=== PATIENT | female | born 1990 | race American Indian/Alaskan Native ===

== ENCOUNTER 2016-10-04 14:26 | Emergency (ER) | payer MEDICAID ==
[2016-10-04] MEDS ORDERED: Ondansetron 4 MG/2 ML SDV IV ONE (15:03)
[2016-10-04] MEDS ORDERED: Sodium Chloride 0.9% 1,000 ML IV ONE (15:03)
--- NOTE | 2016-10-04 15:11 | EDM.PDOC ---
ED HPI GENERAL MEDICAL PROBLEM - General Chief Complaint: Abdominal Pain Stated Complaint: SHARP PAINS, IN ABDOMEN Time Seen by Provider: 10/04/16 14:55 Source of Information: Reports: Patient History Limitations: Reports: No Limitations - History of Present Illness INITIAL COMMENTS - FREE TEXT/NARRATIVE: This 26 yo female patient reports to the ED with a 1 hour history of lower abdominal pain. The patient reports she was not doing anything specific when the pain started. The patient reports she is on the Mirena and has been for the past 6 months. The patient reports she has had 4 children (all vaginal births), but has had no abdominal surgeries. The patient reports no dysuria or changes in bowel movements. Onset: Today Onset Date: 10/04/16 Onset Time: 14:00 Duration: Constant, Getting Worse Location: Reports: Abdomen (lower abdomen) Quality: Reports: Ache, Pressure, Sharp Severity: Severe Improves with: Reports: None Worsens with: Reports: None Context: Reports: Other Associated Symptoms: Reports: No Other Symptoms Lower Abdomen Pain Score (Numeric/FACES): 10 - Related Data Allergies Allergy/AdvReac Type Severity Reaction Status Date / Time morphine Allergy Other Verified 02/24/16 10:30 Home Meds: Home Meds . 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: Reports: Social & Family History - Family History Family Medical History: Noncontributory - Tobacco Use Smoking Status *Q: Current Every Day Smoker Years of Tobacco use: 7 Packs/Tins Daily: 0.5 Used Tobacco, but Quit: No Month Tobacco Last Used: 07/21/15 Second Hand Smoke Exposure: Yes - Caffeine Use Caffeine Use: Reports: Coffee, Energy Drinks, Soda - Alcohol Use Days Per Week of Alcohol Use: 1 Number of Drinks Per Day: 6 Total Drinks Per Week: 6 - Recreational Drug Use Recreational Drug Use: No - Living Situation & Occupation Living situation: Reports: with Family ED ROS GENERAL - Review of Systems Review Of Systems: ROS reveals no pertinent complaints other than HPI. ED EXAM, GI/ABD - Physical Exam Exam: See Below Exam Limited By: No Limitations General Appearance: Alert, WD/WN, Moderate Distress, Thin Eyes: Bilateral: Normal Appearance, EOMI Ears: Normal External Exam, Normal Canal, Hearing Grossly Normal, Normal TMs Nose: Normal Inspection, Normal Mucosa, No Blood Throat/Mouth: Normal Inspection, Normal Lips, Normal Teeth, Normal Gums, Normal Oropharynx, Normal Voice, No Airway Compromise Head: Atraumatic, Normocephalic Neck: Normal Inspection, Supple, Non-Tender, Full Range of Motion Respiratory/Chest: No Respiratory Distress, Lungs Clear, Normal Breath Sounds, No Accessory Muscle Use, Chest Non-Tender Cardiovascular: Normal Peripheral Pulses, Regular Rate, Rhythm, No Edema, No Gallop, No JVD, No Murmur, No Rub GI/Abdominal Exam: Normal Bowel Sounds, Soft, No Organomegaly, No Distention, No Abnormal Bruit, Pelvis Stable, Guarding (lower abdomen), Tender (lower abdomen) Rectal (Female) Exam: Deferred Back Exam: Normal Inspection, Full Range of Motion, NT Extremities: Normal Inspection, Normal Range of Motion, Non-Tender, Normal Capillary Refill, No Pedal Edema Neurological: Alert, Oriented, CN II-XII Intact, Normal Cognition, Normal Gait, Normal Reflexes, No Motor/Sensory Deficits Psychiatric: Anxious, Tearful Skin Exam: Warm, Dry, Intact, Normal Color, No Rash Lymphatic: No Adenopathy Course - Vital Signs Last Recorded V/S: Last Vital Signs Temp 36.2 C 10/04/16 17:26 Pulse 60 10/04/16 17:26 Resp 18 10/04/16 17:26 BP 102/54 L 10/04/16 17:26 Pulse Ox 98 10/04/16 17:26 - Orders/Labs/Meds Orders: Active Orders 24 hr Category Date Time Status Pelvis Non OB Ltd [US] Urgent Exams 10/04/16 15:50 Taken Transvaginal Non OB [US] Routine Exams 10/04/16 16:48 Taken Labs: Laboratory Tests 10/04/16 10/04/16 10/04/16 Range/Units 15:04 15:04 15:04 WBC 7.8 (5.0-10.0) 10^3/uL RBC 4.50 (4.2-5.4) 10^6/uL Hgb 13.4 (12.0-16.0) g/dL Hct 39.1 (37.0-47.0) % MCV 86.9 (80-100) fL MCH 29.8 (27.0-34.0) pg MCHC 34.3 (33.0-35.0) g/dL Plt Count 228 (150-450) 10^3/uL Neut % (Auto) 66.6 (42.2-75.2) % Lymph % (Auto) 21.2 (20.5-50.1) % [place] % (Auto) 9.7 H (2-8) % Eos % (Auto) 2.4 (1.0-3.0) % Baso % (Auto) 0.1 (0.0-1.0) % Sodium 137 (135-145) mmol/L Potassium 3.8 (3.6-5.0) mmol/L Chloride 106 (101-111) mmol/L Carbon Dioxide 23.0 (21.0-31.0) mmol/L Anion Gap 11.8 BUN 8 (7-18) mg/dL Creatinine 0.6 (0.6-1.3) mg/dL Est Cr Clr Drug Dosing 149.79 mL/min Estimated GFR (MDRD) > 60 BUN/Creatinine Ratio 13.33 Glucose 119 H (74-105) mg/dL Lactic Acid 0.9 (0.5-2.2) mmol/L Calcium 8.8 (8.4-10.2) mg/dl Total Bilirubin 0.8 (0.2-1.0) mg/dL AST 13 (10-42) IU/L ALT 11 (10-60) IU/L Alkaline Phosphatase 61 (42-121) IU/L Total Protein 7.1 (6.7-8.2) g/dl Albumin 4.2 (3.2-5.5) g/dl Globulin 2.9 Albumin/Globulin Ratio 1.45 Amylase 24 L (28-100) U/L Lipase 15 L (22-51) U/L Urine Color (YELLOW) Urine Appearance (CLEAR) Urine pH (5.0-9.0) Ur Specific [place] (1.005-1.030) Urine Protein (NEGATIVE) Urine Glucose (UA) (NEGATIVE) Urine Ketones (NEGATIVE) Urine Occult Blood (NEGATIVE) Urine Nitrite (NEGATIVE) Urine Bilirubin (NEGATIVE) Urine Urobilinogen (0.2-1.0) mg/dL Ur Leukocyte Esterase (NEGATIVE) Urine RBC /HPF Urine WBC (0-5/HPF) /HPF Ur Epithelial Cells /HPF Urine Bacteria (0-FEW/HPF) /HPF Urine Mucus /LPF Urine HCG, Qual Urine Opiates Screen (NEGATIVE) Ur Oxycodone Screen (NEGATIVE) Urine Methadone Screen (NEGATIVE) Ur Barbiturates Screen (NEGATIVE) U Tricyclic Antidepress (NEGATIVE) Ur Phencyclidine Scrn (NEGATIVE) Ur Amphetamine Screen (NEGATIVE) U Methamphetamines Scrn (NEGATIVE) Urine MDMA Screen (NEGATIVE) U Benzodiazepines Scrn (NEGATIVE) Urine Cocaine Screen (NEGATIVE) U Marijuana (THC) Screen (NEGATIVE) 10/04/16 10/04/16 10/04/16 Range/Units 15:05 15:05 15:05 WBC (5.0-10.0) 10^3/uL RBC (4.2-5.4) 10^6/uL Hgb (12.0-16.0) g/dL Hct (37.0-47.0) % MCV (80-100) fL MCH (27.0-34.0) pg MCHC (33.0-35.0) g/dL Plt Count (150-450) 10^3/uL Neut % (Auto) (42.2-75.2) % Lymph % (Auto) (20.5-50.1) % [place] % (Auto) (2-8) % Eos % (Auto) (1.0-3.0) % Baso % (Auto) (0.0-1.0) % Sodium (135-145) mmol/L Potassium (3.6-5.0) mmol/L Chloride (101-111) mmol/L Carbon Dioxide (21.0-31.0) mmol/L Anion Gap BUN (7-18) mg/dL Creatinine (0.6-1.3) mg/dL Est Cr Clr Drug Dosing mL/min Estimated GFR (MDRD) BUN/Creatinine Ratio Glucose (74-105) mg/dL Lactic Acid (0.5-2.2) mmol/L Calcium (8.4-10.2) mg/dl Total Bilirubin (0.2-1.0) mg/dL AST (10-42) IU/L ALT (10-60) IU/L Alkaline Phosphatase (42-121) IU/L Total Protein (6.7-8.2) g/dl Albumin (3.2-5.5) g/dl Globulin Albumin/Globulin Ratio Amylase (28-100) U/L Lipase (22-51) U/L Urine Color Yellow (YELLOW) Urine Appearance Slightly cloudy (CLEAR) Urine pH 7.0 (5.0-9.0) Ur Specific [place] 1.020 (1.005-1.030) Urine Protein Negative (NEGATIVE) Urine Glucose (UA) Negative (NEGATIVE) Urine Ketones Negative (NEGATIVE) Urine Occult Blood Negative (NEGATIVE) Urine Nitrite Negative (NEGATIVE) Urine Bilirubin Negative (NEGATIVE) Urine Urobilinogen 1.0 (0.2-1.0) mg/dL Ur Leukocyte Esterase Trace H (NEGATIVE) Urine RBC 0-5 /HPF Urine WBC 20-30 H (0-5/HPF) /HPF Ur Epithelial Cells Moderate H /HPF Urine Bacteria Few (0-FEW/HPF) /HPF Urine Mucus Many H /LPF Urine HCG, Qual Negative Urine Opiates Screen Negative (NEGATIVE) Ur Oxycodone Screen Negative (NEGATIVE) Urine Methadone Screen Negative (NEGATIVE) Ur Barbiturates Screen Negative (NEGATIVE) U Tricyclic Antidepress Negative (NEGATIVE) Ur Phencyclidine Scrn Negative (NEGATIVE) Ur Amphetamine Screen Negative (NEGATIVE) U Methamphetamines Scrn Negative (NEGATIVE) Urine MDMA Screen Negative (NEGATIVE) U Benzodiazepines Scrn Negative (NEGATIVE) Urine Cocaine Screen Negative (NEGATIVE) U Marijuana (THC) Screen Negative (NEGATIVE) Meds: Medications Discontinued Medications Generic Name Dose Route Start Last Admin Trade Name Marioq PRN Reason Stop Dose Admin Sodium Chloride 1,000 mls @ 999 mls/hr 10/04/16 15:03 10/04/16 15:22 Normal Saline IV 10/04/16 16:03 999 mls/hr .BOLUS ONE Administration Ondansetron HCl 4 mg 10/04/16 15:03 10/04/16 15:24 Zofran IV 10/04/16 15:04 4 mg ONETIME ONE Administration Departure - Departure Time of Disposition: 17:47 Disposition: Home, Self-Care 01 Condition: Fair Clinical Impression: Right ovarian cyst - Discharge Information Instructions: Ovarian Cyst Forms: ED Department Discharge Care Plan Goals: The patient was advised of the examination, lab and ultrasound results during the visit. The patient was given a script for Tramadol (50 mg) #10 to take 1 by mouth every 8 hours as needed for pain. If the patient has any additional symptoms or concerns, the patient should follow-up with her primary care facility for continued evaluation and management. - My Orders Last 24 Hours: My Active Orders 10/04/16 15:50 Pelvis Non OB Ltd [US] Urgent 10/04/16 16:48 Transvaginal Non OB [US] Routine - Assessment/Plan Last 24 Hours: My Active Orders 10/04/16 15:50 Pelvis Non OB Ltd [US] Urgent 10/04/16 16:48 Transvaginal Non OB [US] Routine
[2016-10-04 15:30] LABS: CHLORIDE,CL 106 mmol/L (101-111); SODIUM,NA 137 mmol/L (135-145)
[2016-10-04 17:26] VITALS: BP 102/54
== END 2016-10-04 17:56 | disposition home or self-care (01) ==
LOC: DL.ED 14:26
DX: N83.201 Unspecified ovarian cyst, right side (principal); F17.210 Nicotine dependence, cigarettes, uncomplicated; Z88.5 Allergy status to narcotic agent
CPT/HCPCS: 36415; 76830; 76857; 80053; 80305; 81001; 81025; 82150; 83605; 83690; 85025; 96361; 96374; 99284; J2405; J7030

== ENCOUNTER 2017-03-03 00:56 | Emergency (ER) | payer MEDICAID ==
[2017-03-03 01:07] VITALS: BP 116/71
--- NOTE | 2017-03-03 01:09 | EDM.PDOC ---
ED HPI GENERAL MEDICAL PROBLEM - General Chief Complaint: Back Pain or Injury Stated Complaint: ABD PAIN [id number] Time Seen by Provider: 03/03/17 01:04 Source of Information: Reports: Patient History Limitations: Reports: No Limitations - History of Present Illness INITIAL COMMENTS - FREE TEXT/NARRATIVE: c/o low abd pain going both sides of her back since yesterday, appetite normal , nauseous without vomiting. h/o ovarian cyste. 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 & Family History - Family History Family Medical History: Noncontributory - Tobacco Use Smoking Status *Q: Current Every Day Smoker Years of Tobacco use: 7 Packs/Tins Daily: 0.5 Used Tobacco, but Quit: No Month Tobacco Last Used: 07/21/15 Second Hand Smoke Exposure: Yes - Caffeine Use Caffeine Use: Reports: Coffee, Energy Drinks, Soda - Alcohol Use Days Per Week of Alcohol Use: 1 Number of Drinks Per Day: 6 Total Drinks Per Week: 6 - Recreational Drug Use Recreational Drug Use: No - Living Situation & Occupation Living situation: Reports: with Family ED ROS GENERAL - Review of Systems Review Of Systems: ROS reveals no pertinent complaints other than HPI. ED EXAM, GI/ABD - Physical Exam Exam: See Below Exam Limited By: No Limitations General Appearance: Alert, WD/WN, Mild Distress, Moderate Distress Ears: Hearing Grossly Normal Throat/Mouth: Normal Voice, No Airway Compromise Head: Atraumatic Neck: Non-Tender, Full Range of Motion Respiratory/Chest: No Respiratory Distress Cardiovascular: Regular Rate, Rhythm GI/Abdominal Exam: Tender, Other (suprapubic area). No: Distended, Guarding, Rigid, Rebound Neurological: Alert, Oriented, Normal Cognition, Normal Gait, No Motor/Sensory Deficits Psychiatric: Flat Affect Skin Exam: Warm, Dry, Normal Color Lymphatic: No Adenopathy Course - Vital Signs Last Recorded V/S: Last Vital Signs Temp 35.6 C 03/03/17 01:06 Pulse 79 03/03/17 01:06 Resp 18 03/03/17 01:06 BP 116/71 03/03/17 01:06 Pulse Ox 100 03/03/17 01:06 - Orders/Labs/Meds Labs: Laboratory Tests 03/03/17 03/03/17 03/03/17 Range/Units 01:10 01:10 01:30 WBC 7.9 (5.0-10.0) 10^3/uL RBC 4.40 (4.2-5.4) 10^6/uL Hgb 13.3 (12.0-16.0) g/dL Hct 38.6 (37.0-47.0) % MCV 87.7 (80-100) fL MCH 30.2 (27.0-34.0) pg MCHC 34.5 (33.0-35.0) g/dL Plt Count 266 (150-450) 10^3/uL Neut % (Auto) 52.9 (42.2-75.2) % Lymph % (Auto) 28.6 (20.5-50.1) % [place] % (Auto) 15.6 H (2-8) % Eos % (Auto) 2.6 (1.0-3.0) % Baso % (Auto) 0.3 (0.0-1.0) % Sodium 138 (135-145) mmol/L Potassium 3.6 (3.6-5.0) mmol/L Chloride 104 (101-111) mmol/L Carbon Dioxide 27.0 (21.0-31.0) mmol/L Anion Gap 10.6 BUN 11 (7-18) mg/dL Creatinine 0.6 (0.6-1.3) mg/dL Est Cr Clr Drug Dosing 144.59 mL/min Estimated GFR (MDRD) > 60 BUN/Creatinine Ratio 18.33 Glucose 103 (74-105) mg/dL Calcium 8.7 (8.4-10.2) mg/dl Total Bilirubin 0.1 L (0.2-1.0) mg/dL AST 18 (10-42) IU/L ALT 14 (10-60) IU/L Alkaline Phosphatase 68 (42-121) IU/L Total Protein 7.6 (6.7-8.2) g/dl Albumin 4.5 (3.2-5.5) g/dl Globulin 3.1 Albumin/Globulin Ratio 1.45 Urine Color Yellow (YELLOW) Urine Appearance Clear (CLEAR) Urine pH 7.0 (5.0-9.0) Ur Specific [place] 1.015 (1.005-1.030) Urine Protein Negative (NEGATIVE) Urine Glucose (UA) Negative (NEGATIVE) Urine Ketones Negative (NEGATIVE) Urine Occult Blood Negative (NEGATIVE) Urine Nitrite Negative (NEGATIVE) Urine Bilirubin Negative (NEGATIVE) Urine Urobilinogen 1.0 (0.2-1.0) mg/dL Ur Leukocyte Esterase Negative (NEGATIVE) Urine RBC Not seen /HPF Urine WBC Not seen (0-5/HPF) /HPF Ur Epithelial Cells Few /HPF Urine Bacteria Few (0-FEW/HPF) /HPF Urine Other See note Urine HCG, Qual Urine Opiates Screen (NEGATIVE) Ur Oxycodone Screen (NEGATIVE) Urine Methadone Screen (NEGATIVE) Ur Barbiturates Screen (NEGATIVE) U Tricyclic Antidepress (NEGATIVE) Ur Phencyclidine Scrn (NEGATIVE) Ur Amphetamine Screen (NEGATIVE) U Methamphetamines Scrn (NEGATIVE) Urine MDMA Screen (NEGATIVE) U Benzodiazepines Scrn (NEGATIVE) Urine Cocaine Screen (NEGATIVE) U Marijuana (THC) Screen (NEGATIVE) 03/03/17 03/03/17 Range/Units 01:30 01:30 WBC (5.0-10.0) 10^3/uL RBC (4.2-5.4) 10^6/uL Hgb (12.0-16.0) g/dL Hct (37.0-47.0) % MCV (80-100) fL MCH (27.0-34.0) pg MCHC (33.0-35.0) g/dL Plt Count (150-450) 10^3/uL Neut % (Auto) (42.2-75.2) % Lymph % (Auto) (20.5-50.1) % [place] % (Auto) (2-8) % Eos % (Auto) (1.0-3.0) % Baso % (Auto) (0.0-1.0) % Sodium (135-145) mmol/L Potassium (3.6-5.0) mmol/L Chloride (101-111) mmol/L Carbon Dioxide (21.0-31.0) mmol/L Anion Gap BUN (7-18) mg/dL Creatinine (0.6-1.3) mg/dL Est Cr Clr Drug Dosing mL/min Estimated GFR (MDRD) BUN/Creatinine Ratio Glucose (74-105) mg/dL Calcium (8.4-10.2) mg/dl Total Bilirubin (0.2-1.0) mg/dL AST (10-42) IU/L ALT (10-60) IU/L Alkaline Phosphatase (42-121) IU/L Total Protein (6.7-8.2) g/dl Albumin (3.2-5.5) g/dl Globulin Albumin/Globulin Ratio Urine Color (YELLOW) Urine Appearance (CLEAR) Urine pH (5.0-9.0) Ur Specific [place] (1.005-1.030) Urine Protein (NEGATIVE) Urine Glucose (UA) (NEGATIVE) Urine Ketones (NEGATIVE) Urine Occult Blood (NEGATIVE) Urine Nitrite (NEGATIVE) Urine Bilirubin (NEGATIVE) Urine Urobilinogen (0.2-1.0) mg/dL Ur Leukocyte Esterase (NEGATIVE) Urine RBC /HPF Urine WBC (0-5/HPF) /HPF Ur Epithelial Cells /HPF Urine Bacteria (0-FEW/HPF) /HPF Urine Other Urine HCG, Qual Negative Urine Opiates Screen Negative (NEGATIVE) Ur Oxycodone Screen Negative (NEGATIVE) Urine Methadone Screen Negative (NEGATIVE) Ur Barbiturates Screen Negative (NEGATIVE) U Tricyclic Antidepress Negative (NEGATIVE) Ur Phencyclidine Scrn Negative (NEGATIVE) Ur Amphetamine Screen Negative (NEGATIVE) U Methamphetamines Scrn Negative (NEGATIVE) Urine MDMA Screen Negative (NEGATIVE) U Benzodiazepines Scrn Negative (NEGATIVE) Urine Cocaine Screen Negative (NEGATIVE) U Marijuana (THC) Screen Negative (NEGATIVE) - Re-Assessments/Exams Free Text/Narrative Re-Assessment/Exam: 03/03/17 02:38 results discussed with pt and case discussed with Dr Camara and recommendation discussed with pt who prefers to avoid pain meds but will return prn. Departure - Departure Time of Disposition: 02:39 Disposition: Home, Self-Care 01 Condition: Good Clinical Impression: Uterine spasm - Discharge Information Forms: ED Department Discharge Additional Instructions: 1) rest 2) recheck if there is any change or concern 3) see Dr Camara Sunday
[2017-03-03 01:36] LABS: ANION GAP 10.6; CHLORIDE,CL 104 mmol/L (101-111); SODIUM,NA 138 mmol/L (135-145)
== END 2017-03-03 02:47 | disposition home or self-care (01) ==
LOC: DL.ED 00:56
DX: N85.8 Other specified noninflammatory disorders of uterus (principal); F17.210 Nicotine dependence, cigarettes, uncomplicated; Z88.5 Allergy status to narcotic agent
CPT/HCPCS: 36415; 80053; 80305; 81001; 81025; 85025; 99283

== ENCOUNTER 2017-05-18 01:40 | Emergency (ER) | payer MEDICAID ==
[2017-05-18] MEDS ORDERED: LORazepam 1 MG Tab PO ONE (01:41)
[2017-05-18 01:47] VITALS: BP 116/72
--- NOTE | 2017-05-18 01:57 | EDM.PDOC ---
ED HPI GENERAL MEDICAL PROBLEM - General Chief Complaint: Eye Problems Stated Complaint: SOMETHING WRONG WITH EYES [id number] Time Seen by Provider: 05/18/17 01:50 Source of Information: Reports: Patient History Limitations: Reports: No Limitations - History of Present Illness INITIAL COMMENTS - FREE TEXT/NARRATIVE: states was working then suddenly started seeing wriggly lines across both eyes and things looked little blurred. denies PELAYO but does have h/o migraines. denies DM. - Related Data Allergies Allergy/AdvReac Type Severity Reaction Status Date / Time morphine Allergy Stomach Verified 05/18/17 01:45 Upset Home Meds: Home Meds . 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 & Family History - Family History Family Medical History: Noncontributory - Tobacco Use Smoking Status *Q: Current Every Day Smoker Years of Tobacco use: 7 Packs/Tins Daily: 0.5 Used Tobacco, but Quit: No Month/Year Tobacco Last Used: 07/21/15 Second Hand Smoke Exposure: Yes - Caffeine Use Caffeine Use: Reports: Coffee, Energy Drinks, Soda - Alcohol Use Days Per Week of Alcohol Use: 1 Number of Drinks Per Day: 6 Total Drinks Per Week: 6 - Recreational Drug Use Recreational Drug Use: No - Living Situation & Occupation Living situation: Reports: with Family ED ROS GENERAL - Review of Systems Review Of Systems: ROS reveals no pertinent complaints other than HPI. ED EXAM GENERAL W FULL EYE - Physical Exam Exam: See Below Exam Limited By: No Limitations General Appearance: Alert, WD/WN, No Apparent Distress Eye Exam: Bilateral Eye: EOMI, Normal Fundi (disk ess sharp, no gorss haem), Normal Inspection (anterior chamber no hyphema), PERRL (pupils ER @ 4mm) Visual Acuity (R) 20/: 40 Visual Acuity (L) 20/: 30 With Correction: No Eyelids: Bilateral: Normal Appearance Conjunctiva & Sclera: Bilateral: Normal Appearance Cornea Exam: Bilateral: Normal Appearance Extraocular Movements: Bilateral: Intact Pupillary Size: Bilateral: 4 mm Pupillary Reaction: Bilateral: Brisk Anterior Chamber: Bilateral: Normal Appearance Ears: Hearing Grossly Normal Throat/Mouth: Normal Voice, No Airway Compromise Head: Atraumatic Neck: Non-Tender, Full Range of Motion Respiratory/Chest: No Respiratory Distress Cardiovascular: Regular Rate, Rhythm GI/Abdominal: Soft, Non-Tender Neurological: Alert, Oriented, Normal Cognition, Normal Gait, No Motor/Sensory Deficits Psychiatric: Flat Affect Skin Exam: Warm, Dry, Normal Color Lymphatic: No Adenopathy Course - Vital Signs Last Recorded V/S: Last Vital Signs Temp 36.0 C 05/18/17 01:45 Pulse 69 05/18/17 01:45 Resp 18 05/18/17 01:45 BP 116/72 05/18/17 01:45 Pulse Ox 100 05/18/17 01:45 - Orders/Labs/Meds Meds: Medications Discontinued Medications Generic Name Dose Route Start Last Admin Trade Name Marioq PRN Reason Stop Dose Admin Ketorolac Tromethamine 30 mg 05/18/17 02:08 05/18/17 02:14 Toradol IM 05/18/17 02:09 30 mg ONETIME ONE Administration - Re-Assessments/Exams Free Text/Narrative Re-Assessment/Exam: 05/18/17 02:59 results discussed with pt. Departure - Departure Time of Disposition: 02:59 Disposition: Home, Self-Care 01 Condition: Good Clinical Impression: Panic anxiety syndrome - Discharge Information Instructions: Panic Attacks, [id number] Forms: ED Department Discharge Additional Instructions: 1) avoid drinking red bull and energy drinks 2) follow up at clinic or recheck as needed rx togo; ativan 1.0mg x1
[2017-05-18] MEDS ORDERED: Ketorolac 30 MG/ML SDV IM ONE (02:08)
[2017-05-18] MEDS ORDERED: LORazepam 1 MG Tab ONE (03:03)
== END 2017-05-18 03:13 | disposition home or self-care (01) ==
LOC: DL.ED 01:40
DX: F41.0 Panic disorder [episodic paroxysmal anxiety] (principal); F17.210 Nicotine dependence, cigarettes, uncomplicated; Z88.5 Allergy status to narcotic agent
CPT/HCPCS: 96372; 99283; A9270; J1885

== ENCOUNTER 2017-07-14 14:00 | Emergency (ER) | payer MEDICAID ==
[2017-07-14 14:41] VITALS: BP 109/68
[2017-07-14 16:05] LABS: CHLORIDE,CL 106 mmol/L (101-111); SODIUM,NA 139 mmol/L (135-145)
--- NOTE | 2017-07-14 16:21 | EDM.PDOC ---
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 Patient states when she pulled a tampon out at 1300. She began to have severe cramping. She states she has had trouble with the IUD since it was placed less than 1 year ago. Denies . 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 ED EXAM, RENAL/ - Physical Exam Exam: See Below Exam Limited By: No Limitations General Appearance: Alert, WD/WN, No Apparent Distress Eye Exam: Bilateral Eye: EOMI, Normal Inspection Ears: Normal External Exam, Normal Canal, Hearing Grossly Normal, Normal TMs Nose: Normal Inspection, Normal Mucosa, No Blood Throat/Mouth: Normal Inspection, Normal Lips, Normal Teeth, Normal Gums, Normal Oropharynx, Normal Voice, No Airway Compromise Head: Atraumatic, Normocephalic Neck: Normal Inspection, Supple, Non-Tender, Full Range of Motion Respiratory/Chest: No Respiratory Distress, Lungs Clear, Normal Breath Sounds, No Accessory Muscle Use, Chest Non-Tender Cardiovascular: Normal Peripheral Pulses, Regular Rate, Rhythm, No Edema, No Gallop, No JVD, No Murmur, No Rub GI/Abdominal: Normal Bowel Sounds, Soft, Non-Tender, No Organomegaly, No Distention, No Abnormal Bruit, No Mass Rectal (Female) Exam: Deferred Back Exam: Normal Inspection Extremities: Normal Inspection, Normal Range of Motion, Non-Tender, Normal Capillary Refill, No Pedal Edema Neurological: Alert, Oriented, CN II-XII Intact, Normal Cognition, Normal Gait, Normal Reflexes, No Motor/Sensory Deficits Psychiatric: Normal Affect, Normal Mood Skin Exam: Warm, Dry, Intact, Normal Color, No Rash Lymphatic: No Adenopathy Course - Vital Signs Last Recorded V/S: Last Vital Signs Temp 98.8 F 07/14/17 14:18 Pulse 72 07/14/17 14:18 Resp 16 07/14/17 14:18 BP 109/68 07/14/17 14:18 Pulse Ox 98 07/14/17 14:18 - Orders/Labs/Meds Orders: Active Orders 24 hr Category Date Time Status DRUG SCREEN URINE BIORAD [URCHEM] Stat Lab 07/14/17 15:40 Ordered HCG QUALITATIVE,URINE [URCHEM] Stat Lab 07/14/17 15:40 Ordered UA W/MICROSCOPIC [URIN] Stat Lab 07/14/17 15:40 Ordered Labs: Laboratory Tests 07/14/17 07/14/17 07/14/17 Range/Units 15:40 15:40 15:40 WBC (5.0-10.0) 10^3/uL RBC (4.2-5.4) 10^6/uL Hgb (12.0-16.0) g/dL Hct (37.0-47.0) % MCV (80-100) fL MCH (27.0-34.0) pg MCHC (33.0-35.0) g/dL Plt Count (150-450) 10^3/uL Neut % (Auto) (42.2-75.2) % Lymph % (Auto) (20.5-50.1) % Bates % (Auto) (2-8) % Eos % (Auto) (1.0-3.0) % Baso % (Auto) (0.0-1.0) % Sodium (135-145) mmol/L Potassium (3.6-5.0) mmol/L Chloride (101-111) mmol/L Carbon Dioxide (21.0-31.0) mmol/L Anion Gap BUN (7-18) mg/dL Creatinine (0.6-1.3) mg/dL Est Cr Clr Drug Dosing mL/min Estimated GFR (MDRD) BUN/Creatinine Ratio Glucose (74-105) mg/dL Calcium (8.4-10.2) mg/dl Total Bilirubin (0.2-1.0) mg/dL AST (10-42) IU/L ALT (10-60) IU/L Alkaline Phosphatase (42-121) IU/L Total Protein (6.7-8.2) g/dl Albumin (3.2-5.5) g/dl Globulin Albumin/Globulin Ratio Urine Color Yellow (YELLOW) Urine Appearance Turbid (CLEAR) Urine pH 7.0 (5.0-9.0) Ur Specific Souris 1.010 (1.005-1.030) Urine Protein Negative (NEGATIVE) Urine Glucose (UA) Negative (NEGATIVE) Urine Ketones Negative (NEGATIVE) Urine Occult Blood Small H (NEGATIVE) Urine Nitrite Positive H (NEGATIVE) Urine Bilirubin Negative (NEGATIVE) Urine Urobilinogen 1.0 (0.2-1.0) mg/dL Ur Leukocyte Esterase Trace H (NEGATIVE) Urine RBC 5-10 H /HPF Urine WBC 5-10 H (0-5/HPF) /HPF Ur Epithelial Cells Few /HPF Urine Bacteria Many H (0-FEW/HPF) /HPF Urine Mucus Few H /LPF Urine HCG, Qual Negative Urine Opiates Screen Negative (NEGATIVE) Ur Oxycodone Screen Negative (NEGATIVE) Urine Methadone Screen Negative (NEGATIVE) Ur Barbiturates Screen Negative (NEGATIVE) U Tricyclic Antidepress Negative (NEGATIVE) Ur Phencyclidine Scrn Negative (NEGATIVE) Ur Amphetamine Screen Negative (NEGATIVE) U Methamphetamines Scrn Negative (NEGATIVE) Urine MDMA Screen Negative (NEGATIVE) U Benzodiazepines Scrn Negative (NEGATIVE) Urine Cocaine Screen Negative (NEGATIVE) U Marijuana (THC) Screen Negative (NEGATIVE) 07/14/17 07/14/17 Range/Units 15:40 15:40 WBC 8.0 (5.0-10.0) 10^3/uL RBC 4.75 (4.2-5.4) 10^6/uL Hgb 14.4 (12.0-16.0) g/dL Hct 41.7 (37.0-47.0) % MCV 87.8 (80-100) fL MCH 30.3 (27.0-34.0) pg MCHC 34.5 (33.0-35.0) g/dL Plt Count 266 (150-450) 10^3/uL Neut % (Auto) 63.0 (42.2-75.2) % Lymph % (Auto) 24.9 (20.5-50.1) % Bates % (Auto) 9.2 H (2-8) % Eos % (Auto) 2.8 (1.0-3.0) % Baso % (Auto) 0.1 (0.0-1.0) % Sodium 139 (135-145) mmol/L Potassium 3.5 L (3.6-5.0) mmol/L Chloride 106 (101-111) mmol/L Carbon Dioxide 28.0 (21.0-31.0) mmol/L Anion Gap 8.5 BUN 10 (7-18) mg/dL Creatinine 0.8 (0.6-1.3) mg/dL Est Cr Clr Drug Dosing 111.37 mL/min Estimated GFR (MDRD) > 60 BUN/Creatinine Ratio 12.50 Glucose 94 (74-105) mg/dL Calcium 9.0 (8.4-10.2) mg/dl Total Bilirubin 0.3 (0.2-1.0) mg/dL AST 17 (10-42) IU/L ALT 13 (10-60) IU/L Alkaline Phosphatase 62 (42-121) IU/L Total Protein 7.6 (6.7-8.2) g/dl Albumin 4.6 (3.2-5.5) g/dl Globulin 3.0 Albumin/Globulin Ratio 1.53 Urine Color (YELLOW) Urine Appearance (CLEAR) Urine pH (5.0-9.0) Ur Specific Souris (1.005-1.030) Urine Protein (NEGATIVE) Urine Glucose (UA) (NEGATIVE) Urine Ketones (NEGATIVE) Urine Occult Blood (NEGATIVE) Urine Nitrite (NEGATIVE) Urine Bilirubin (NEGATIVE) Urine Urobilinogen (0.2-1.0) mg/dL Ur Leukocyte Esterase (NEGATIVE) Urine RBC /HPF Urine WBC (0-5/HPF) /HPF Ur Epithelial Cells /HPF Urine Bacteria (0-FEW/HPF) /HPF Urine Mucus /LPF Urine HCG, Qual Urine Opiates Screen (NEGATIVE) Ur Oxycodone Screen (NEGATIVE) Urine Methadone Screen (NEGATIVE) Ur Barbiturates Screen (NEGATIVE) U Tricyclic Antidepress (NEGATIVE) Ur Phencyclidine Scrn (NEGATIVE) Ur Amphetamine Screen (NEGATIVE) U Methamphetamines Scrn (NEGATIVE) Urine MDMA Screen (NEGATIVE) U Benzodiazepines Scrn (NEGATIVE) Urine Cocaine Screen (NEGATIVE) U Marijuana (THC) Screen (NEGATIVE) - Re-Assessments/Exams Free Text/Narrative Re-Assessment/Exam: 07/14/17 16:00 Dr. Duvall was called to consult on the patient. Dr. Duvall saw the patient and removed the IUD from the cervix. He states he does not feel there is risk of ectopic due to the negative HCG and normal level Hgb. Patient states immediate relief with the removal of the IUD. Departure - Departure Time of Disposition: 16:01 Disposition: Home, Self-Care 01 Condition: Fair Clinical Impression: Abdominal pain Qualifiers: Abdominal location: lower abdomen, unspecified Qualified Code(s): R10.30 - Lower abdominal pain, unspecified Displacement of intrauterine contraceptive device Qualifiers: Encounter type: initial encounter Qualified Code(s): T83.32XA - Displacement of intrauterine contraceptive device, initial encounter - Discharge Information Instructions: Abdominal Pain, Adult, [id number] Referrals: Deja Camara MD [Primary Care Provider] - Forms: ED Department Discharge Additional Instructions: Return to the ER with any further pain, significant bleeding, or further problems Follow up with your primary care facility Take other contraceptive precautions to prevent - My Orders Last 24 Hours: My Active Orders 07/14/17 15:40 DRUG SCREEN URINE BIORAD [URCHEM] Stat HCG QUALITATIVE,URINE [URCHEM] Stat UA W/MICROSCOPIC [URIN] Stat - Assessment/Plan Last 24 Hours: My Active Orders 07/14/17 15:40 DRUG SCREEN URINE BIORAD [URCHEM] Stat HCG QUALITATIVE,URINE [URCHEM] Stat UA W/MICROSCOPIC [URIN] Stat I have read and agree with the documentation that has been completed regarding this visit. By signing this record, I attest that the documentation was completed in my physical presence and is an accurate record of the encounter.
--- NOTE | 2017-07-14 18:56 | CONS ---
SERVICE DATE: 07/14/2017 HISTORY: This patient is a 27-year-old female who is a 4, para 4 patient. I was called by the emergency room providers to please evaluate the patient with them. The patient does have an IUD in and was complaining of severe vaginal and lower abdominal pain. She seemed to notice this pain, seemed to change or worsen when she removed the tampon that she had in because there was quite a bit of spotting that the patient has had recently. Actually, the patient states that she has had intermittent cramping off and on for 1 year with the IUD and she is demanding or urging that we please remove it if at all possible. Also, we do indeed want to rule out unrecognized early intrauterine or rule out unrecognized ectopic . The patient denies all symptoms of . She has tried Nexplanon previously and she states that after I remove her IUD today, she would like to possibly use Nexplanon again. She is a patient of Dr. Camara in our clinic. The patient is seen about mid afternoon on 07/14/2017. As mentioned above, she denies all symptoms of . PAST MEDICAL HISTORY: Please see the EHR. PHYSICAL EXAMINATION: Vital Signs: Blood pressure 112/74, pulse 66, the patient is afebrile. Abdomen: Soft and slightly to moderately tender in each lower quadrant and over the suprapubic or uterine area. There is negative rebound tenderness and no palpable masses. There is no rigidity. Incidentally, we do not have any abdominal or pelvic ultrasound availability this weekend at this hospital. The pelvic exam has been done briefly previously by nurse practitioner. I am repeating the pelvic exam now and there is a very slight amount of blood in the vaginal vault and in the cervical canal. There were no foreign bodies in the vagina at this time. Vulvar exam was normal. I do see the IUD filament protruding out about 1.5 cm from the external os. At the urging of the patient, I have removed the IUD at the present time without difficulty. The IUD does come out very quickly and very easily and I am suspicious that possibly it may have been in the endocervical canal and causing the severe sharp pains that she was having. She immediately feels better when the IUD is out and states that she no longer has the pain. The cervix is negative for lesions otherwise other than the slight amount of blood as I have mentioned. On further examination, the cervix is nontender to motion. The uterus is in the mid position, normal- sized, and now seems to be nontender. I do not appreciate any adnexal masses or enlargement on either side and her tenderness that she had earlier is now gone. IMPRESSION: Apparent dislocated or intrauterine device that was partially extruded into the cervical canal. I do strongly doubt unrecognized intrauterine or unrecognized ectopic or tubal because her urine test that we have ordered on her is negative. Her hemoglobin is also very normal at 14.4 and her white blood cell count is 8000 and her platelet count was normal also. The patient appears very stable and of course denies any syncope or shoulder pain or any of these ectopic symptoms. PLAN: I have asked her to avoid intercourse for the next 7 to 10 days if at all possible. I have also instructed her to please contact us either in the clinic or through the hospital boiler operator helper day or night if she thought there was a recurrence of pain, bleeding, or any other unusual symptoms suggestive of early since this can always be a slight possibility in the future. She assures me that she will keep in close contact with us. All of her questions have been answered as best as possible. This is either a brief or intermediate consultation today. The patient is also seen by nurse practitioner, Kacey Duke. [facility] /[phone]
== END 2017-07-14 16:05 | disposition home or self-care (01) ==
LOC: DL.ED 14:00
DX: T83.32XA Displacement of intrauterine contraceptive device, initial encounter (principal); F17.210 Nicotine dependence, cigarettes, uncomplicated; Z88.5 Allergy status to narcotic agent
CPT/HCPCS: 36415; 80053; 80305; 81001; 81025; 85025; 99284

== ENCOUNTER 2018-05-19 19:19 | Emergency (ER) | payer MEDICAID ==
[2018-05-19 19:47] VITALS: BP 123/71
[2018-05-19] MEDS ORDERED: Clindamycin HCl 150 MG Cap PO ONE (19:49)
[2018-05-19] MEDS ORDERED: Acetaminophen/HYDROcodone 325-10 MG Tab ONE (19:54)
--- NOTE | 2018-05-19 19:55 | EDM.PDOC ---
ED HPI GENERAL MEDICAL PROBLEM - General Chief Complaint: Skin Complaint Stated Complaint: INFECTED FINGER, LEFT SOCIAL FINGER Time Seen by Provider: 05/19/18 19:50 Source of Information: Reports: Patient History Limitations: Reports: No Limitations - History of Present Illness INITIAL COMMENTS - FREE TEXT/NARRATIVE: left 3rd tip infection x 3 days been soaking it but getting worse. 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 ED EXAM, SKIN/RASH Exam: See Below Exam Limited By: No Limitations General Appearance: Alert, WD/WN, Mild Distress, Other (pain) Ears: Hearing Grossly Normal Throat/Mouth: Normal Voice, No Airway Compromise Head: Atraumatic Neck: Non-Tender, Full Range of Motion Respiratory/Chest: No Respiratory Distress Cardiovascular: Regular Rate, Rhythm GI/Abdominal: Soft, Non-Tender Extremities: Other (left 3rd abscess, NV wnl) Neurological: Alert, Oriented, Normal Cognition, Normal Gait, No Motor/Sensory Deficits Psychiatric: Tearful Skin: Warm, Dry, Normal Color Location, Skin: Upper Extremity, Left Associated features: Tenderness, Swelling, Inflammation Lymphatic: No Adenopathy ED SKIN PROCEDURES - I&D Site: left 3rd tip Skin Prep: Providone-Iodine (Betadine) Local Anesthesia: Lidocaine: Other (freeze) Area Incised With: 11 Blade Drainage: Purulent, Bloody Probed to Break Up Loculations: No Packed With: None Sterile Dressing: Other (bandaid) Complications: No Course - Vital Signs Last Recorded V/S: Last Vital Signs Temp 36.6 C 05/19/18 19:43 Pulse 94 05/19/18 19:43 Resp 17 05/19/18 19:43 BP 123/71 05/19/18 19:43 Pulse Ox 99 05/19/18 19:43 - Orders/Labs/Meds Orders: Active Orders 24 hr Category Date Time Status Clindamycin HCl [Cleocin] Med 05/19/18 19:49 Once 300 mg PO ONETIME ONE Departure - Departure Time of Disposition: 19:53 Disposition: Home, Self-Care 01 Condition: Good Clinical Impression: Abscess - Discharge Information Instructions: Skin Abscess, [id number] Additional Instructions: 1) keep wound clean dry covered 24 hours 2) daily dressing change after warm epsom salts soaks 3) follow up at clinic rx given; clindamycin 300mg qid x 40 vicodin 5/325mg tid prn x 12 - My Orders Last 24 Hours: My Active Orders 05/19/18 19:49 Clindamycin HCl [Cleocin] 300 mg PO ONETIME ONE - Assessment/Plan Last 24 Hours: My Active Orders 05/19/18 19:49 Clindamycin HCl [Cleocin] 300 mg PO ONETIME ONE
== END 2018-05-19 20:05 | disposition home or self-care (01) ==
LOC: DL.ED 19:19
DX: L02.512 Cutaneous abscess of left hand (principal); Z88.8 Allergy status to other drugs, medicaments and biological substances
CPT/HCPCS: 10060; 87070; 99283; A9270; 87077; 87186

== ENCOUNTER 2019-02-12 21:12 | Emergency (ER) | payer MEDICAID ==
--- NOTE | 2019-02-13 00:33 | EDM.PDOC ---
ED HPI GENERAL MEDICAL PROBLEM - General Chief Complaint: ENT Problem Stated Complaint: EAR PAIN, CAN'T HEAR Time Seen by Provider: 02/13/19 00:20 Source of Information: Reports: Patient, RN History Limitations: Reports: No Limitations - History of Present Illness INITIAL COMMENTS - FREE TEXT/NARRATIVE: 28-year-old female who presents to the ER with complaints of left ear pain 1 day. Patient reports taking a shower cleaning her ears with a Q-tip, and wakeup with an earache. she has tried ibuprofen with no relief. She denies any upper respiratory symptoms nor fever. She denies any swimming activity recently. 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 ED EXAM, ENT - Physical Exam Exam: See Below Exam Limited By: No Limitations General Appearance: Alert, Moderate Distress Ears: TM Dullness (Left TM), TM Erythema (left TM) Nose: Normal Inspection, Normal Mucousa, No Blood Mouth/Throat: Normal Inspection, Normal Gums, Normal Lips, Normal Oropharynx, Normal Teeth Head: Atraumatic, Normocephalic Neck: Normal Inspection, Supple, Non-Tender, Full Range of Motion Respiratory/Chest: No Respiratory Distress, Lungs Clear, Normal Breath Sounds, No Accessory Muscle Use, Chest Non-Tender Cardiovascular: Regular Rate, Rhythm Lymphatic: No Adenopathy Course - Vital Signs Last Recorded V/S: Last Vital Signs Temp 98.2 F 02/13/19 00:42 Pulse 93 02/13/19 00:42 Resp 16 02/13/19 00:42 BP 109/75 02/13/19 00:42 Pulse Ox 99 02/13/19 00:42 - Orders/Labs/Meds Meds: Medications Discontinued Medications Generic Name Dose Route Start Last Admin Trade Name Freq PRN Reason Stop Dose Admin Amoxicillin 1,000 mg 02/13/19 00:35 02/13/19 00:49 Amoxil PO 02/13/19 00:36 1,000 mg ONETIME ONE Administration - Re-Assessments/Exams Free Text/Narrative Re-Assessment/Exam: Reviewed findings with patient. Started her on Amoxicillin 1g BID x 7 days. Initiated Amoxicillin 1 g in the ER. Rx given to patient. Ibuprofen 600 mg every 8 hours prn. Departure - Departure Time of Disposition: 00:32 Disposition: Home, Self-Care 01 Condition: Fair Clinical Impression: Otitis media Qualifiers: Otitis media type: other nonsuppurative Chronicity: acute Laterality: left Recurrence: not specified as recurrent Qualified Code(s): H65.192 - Other acute nonsuppurative otitis media, left ear - Discharge Information *PRESCRIPTION DRUG MONITORING PROGRAM REVIEWED*: No *COPY OF PRESCRIPTION DRUG MONITORING REPORT IN PATIENT JANN: No Instructions: Otitis Media, Adult, [id number] Referrals: Deja Camara MD [Primary Care Provider] - Forms: ED Department Discharge Additional Instructions: follow up in the clinic with PCP Sepsis Event Note - Evaluation Sepsis Screening Result: No Definite Risk - Focused Exam Date Exam was Performed: 02/17/19 Time Exam was Performed: 00:00
[2019-02-13] MEDS ORDERED: Amoxicillin 500 MG Cap PO ONE (00:35)
[2019-02-13 00:42] VITALS: BP 109/75; PULSE 93
== END 2019-02-13 00:50 | disposition home or self-care (01) ==
LOC: DL.ED 21:12
DX: H65.192 Other acute nonsuppurative otitis media, left ear (principal); Z88.5 Allergy status to narcotic agent; Z79.899 Other long term (current) drug therapy
CPT/HCPCS: 99282; A9270

== ENCOUNTER 2019-03-13 20:48 | Emergency (ER) | payer MEDICAID ==
[2019-03-13 20:54] VITALS: BP 117/78; PULSE 94
[2019-03-13] MEDS ORDERED: Ondansetron 4 MG/2 ML SDV IVPUSH ONE (21:11)
[2019-03-13] MEDS ORDERED: HYDROmorphone 1 MG/ML Syringe IVPUSH ONE (21:11)
[2019-03-13] MEDS ORDERED: Sodium Chloride 0.9% 1,000 ML IV ONE (21:11)
--- NOTE | 2019-03-13 21:15 | EDM.PDOC ---
ED HPI GENERAL MEDICAL PROBLEM - General Chief Complaint: Abdominal Pain Stated Complaint: AMBULANCE Time Seen by Provider: 03/13/19 21:12 Source of Information: Reports: Patient History Limitations: Reports: No Limitations - History of Present Illness INITIAL COMMENTS - FREE TEXT/NARRATIVE: s/p lap jozef today. got home feeling fine only ate cup of mac&cheese and upper abd pain started with nausea. states don't recall being told to avoid solid foods. Right Upper Abdomen Pain Score (Numeric/FACES): 8 - Related Data Allergies Allergy/AdvReac Type Severity Reaction Status Date / Time morphine AdvReac Stomach Verified 03/13/19 20:55 Upset Home Meds: Home Meds . [No Known Home Meds] 03/13/19 [History] Past Medical History - Past Health History Medical/Surgical History: Denies Medical/Surgical History Gastrointestinal History: Reports: Cholelithiasis Other Gastrointestinal History: FU with GI scheduled for 01/24 in . 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: Neurological History: Reports: Migraines - Past Surgical History GI Surgical History: Reports: Cholecystectomy Social & Family History - Family History Family Medical History: Noncontributory - Tobacco Use Smoking Status *Q: Current Every Day Smoker Years of Tobacco use: 10 Packs/Tins Daily: 0.5 Second Hand Smoke Exposure: No - Caffeine Use Caffeine Use: Reports: Coffee, Energy Drinks, Soda, Tea - Recreational Drug Use Recreational Drug Use: No - Living Situation & Occupation Living situation: Reports: with Family ED ROS GENERAL - Review of Systems Review Of Systems: Comprehensive ROS is negative, except as noted in HPI. ED EXAM, GI/ABD - Physical Exam Exam: See Below Exam Limited By: No Limitations General Appearance: Alert, WD/WN, Mild Distress, Moderate Distress, Other ( tearful). No: Active Emesis Ears: Hearing Grossly Normal Throat/Mouth: Normal Voice, No Airway Compromise Head: Atraumatic Neck: Non-Tender, Full Range of Motion Respiratory/Chest: No Respiratory Distress Cardiovascular: Regular Rate, Rhythm GI/Abdominal Exam: Guarding, Tender, Other (periumb region). No: Distended, Rigid, Rebound Neurological: Alert, Oriented, Normal Cognition, Normal Gait, No Motor/Sensory Deficits Psychiatric: Tearful Skin Exam: Warm, Dry, Normal Color Lymphatic: No Adenopathy Course - Vital Signs Last Recorded V/S: Last Vital Signs Temp 37.2 C 03/13/19 20:51 Pulse 94 03/13/19 20:51 Resp 28 H 03/13/19 20:51 BP 117/78 03/13/19 20:51 Pulse Ox 99 03/13/19 20:51 - Orders/Labs/Meds Orders: Active Orders 24 hr Category Date Time Status Abdomen Pelvis w Cont [CT] Urgent Exams 03/13/19 22:10 Taken Labs: Laboratory Tests 03/13/19 03/13/19 03/13/19 Range/Units 21:29 21:29 21:29 WBC 11.5 H (5.0-10.0) 10^3/uL RBC 4.27 (4.2-5.4) 10^6/uL Hgb 11.9 L (12.0-16.0) g/dL Hct 35.5 L (37.0-47.0) % MCV 83.1 (80-100) fL MCH 27.9 (27.0-34.0) pg MCHC 33.5 (33.0-35.0) g/dL Plt Count 280 (150-450) 10^3/uL Neut % (Auto) 72.5 (42.2-75.2) % Lymph % (Auto) 17.6 L (20.5-50.1) % [place] % (Auto) 9.8 H (2-8) % Eos % (Auto) 0.0 L (1.0-3.0) % Baso % (Auto) 0.1 (0.0-1.0) % Sodium 135 (135-145) mmol/L Potassium 3.7 (3.6-5.0) mmol/L Chloride 104 (101-111) mmol/L Carbon Dioxide 23.0 (21.0-31.0) mmol/L Anion Gap 11.7 BUN 7 (7-18) mg/dL Creatinine 0.6 (0.6-1.3) mg/dL Est Cr Clr Drug Dosing 145.88 mL/min Estimated GFR (MDRD) > 60 BUN/Creatinine Ratio 11.66 Glucose 121 H (74-105) mg/dL Lactic Acid 0.9 (0.5-2.0) mmol/L Calcium 8.7 (8.4-10.2) mg/dl Total Bilirubin 0.7 (0.2-1.0) mg/dL AST 59 H (10-42) IU/L ALT 49 (10-60) IU/L Alkaline Phosphatase 71 (42-121) IU/L Total Protein 6.7 (6.7-8.2) g/dl Albumin 3.9 (3.2-5.5) g/dl Globulin 2.8 Albumin/Globulin Ratio 1.39 Amylase 19 L (28-100) U/L Lipase 23 (22-51) U/L Meds: Medications Discontinued Medications Generic Name Dose Route Start Last Admin Trade Name Freq PRN Reason Stop Dose Admin Hydromorphone HCl 1 mg 03/13/19 21:11 03/13/19 21:23 Dilaudid IVPUSH 03/13/19 21:12 1 mg ONETIME ONE Administration Sodium Chloride 1,000 mls @ 999 mls/hr 03/13/19 21:11 03/13/19 21:22 Normal Saline IV 03/13/19 22:11 999 mls/hr .BOLUS ONE Administration Iopamidol 100 ml 03/13/19 22:10 03/13/19 22:24 Isovue-300 (61%) IVPUSH 03/13/19 22:11 100 ml ONETIME ONE Administration Ondansetron HCl 4 mg 03/13/19 21:11 03/13/19 21:23 Zofran IVPUSH 03/13/19 21:12 4 mg ONETIME ONE Administration - Re-Assessments/Exams Free Text/Narrative Re-Assessment/Exam: 03/13/19 23:23 results discussed with pt. Departure - Departure Time of Disposition: 23:23 Disposition: Home, Self-Care 01 Condition: Good Clinical Impression: Postoperative generalized abdominal pain - Discharge Information Instructions: Gallbladder Eating Plan Forms: ED Department Discharge Additional Instructions: 1) no solid foods next 4 days 2) have jello, oatmeal, juice 3) follow up at clinic rx given; bentyl 10mg bid for abd cramps x 12 Sepsis Event Note - Evaluation Sepsis Screening Result: No Definite Risk - Focused Exam Vital Signs: Vital Signs Temp Pulse Resp BP Pulse Ox 03/13/19 20:51 37.2 C 94 28 H 117/78 99 Date Exam was Performed: 03/13/19 Time Exam was Performed: 23:23 - My Orders Last 24 Hours: My Active Orders 03/13/19 22:10 Abdomen Pelvis w Cont [CT] Urgent - Assessment/Plan Last 24 Hours: My Active Orders 03/13/19 22:10 Abdomen Pelvis w Cont [CT] Urgent
[2019-03-13 22:00] LABS: ANION GAP 11.7; CHLORIDE,CL 104 mmol/L (101-111); SODIUM,NA 135 mmol/L (135-145)
[2019-03-13] MEDS ORDERED: Iopamidol 612 MG/ML 100 ML Bottle IVPUSH ONE (22:10)
== END 2019-03-13 23:36 | disposition home or self-care (01) ==
LOC: DL.ED 20:48
DX: G89.18 Other acute postprocedural pain (principal); R10.84 Generalized abdominal pain; F17.210 Nicotine dependence, cigarettes, uncomplicated; Z90.49 Acquired absence of other specified parts of digestive tract; Z88.5 Allergy status to narcotic agent
CPT/HCPCS: 36415; 74177; 80053; 82150; 83605; 83690; 85025; 96361; 96374; 96375; 99284; J1170; J2405; J7030; Q9967

== ENCOUNTER 2020-05-14 00:09 | Emergency (ER) | payer MEDICAID ==
[2020-05-14 00:38] VITALS: BP 106/76; PULSE 90
[2020-05-14] MEDS ORDERED: Acetaminophen 325 MG Tab PO ONE (00:42)
[2020-05-14] MEDS ORDERED: Acetaminophen 325 MG Tab ONE (00:51)
--- NOTE | 2020-05-14 02:12 | EDM.PDOC ---
ED HPI GENERAL MEDICAL PROBLEM - General Chief Complaint: FOOD SPECIALIST Problem Stated Complaint: CRAMPING,MISCARRAIGE Time Seen by Provider: 05/14/20 00:50 Source of Information: Reports: Patient, RN, RN Notes Reviewed History Limitations: Reports: No Limitations - History of Present Illness INITIAL COMMENTS - FREE TEXT/NARRATIVE: 30-year-old female who presents to the ER with complaints of abdominal cramping x1 hour ago. She rates cramping as a 4 out of 10 with 10 being the worst she has not tried anything for pain modality. Patient is a [id number] who is 11 weeks . Patient was told by her FOOD SPECIALIST 3 days ago that the fetus is not viable and had stopped growing at 10 weeks. Patient is scheduled for D&C on 18 May 2020. She also reports that she was told that if she is having cramps, she should be come to the ER for evaluation. She denies any bloody discharge or bleeding at this time. Abdominal Pain Score (Numeric/FACES): 4 - Related Data Allergies Allergy/AdvReac Type Severity Reaction Status Date / Time morphine AdvReac Stomach Verified 03/13/19 20:55 Upset Home Meds: Home Meds . [No Known Home Meds] 03/13/19 [History] Past Medical History - Past Health History Medical/Surgical History: Denies Medical/Surgical History HEENT History: Reports: None Cardiovascular History: Reports: None Respiratory History: Reports: None Gastrointestinal History: Reports: Cholelithiasis Other Gastrointestinal History: FU with GI scheduled for 01/24 in . Genitourinary History: Reports: None FOOD SPECIALIST History: Reports: , Spontaneous Musculoskeletal History: Reports: None Neurological History: Reports: Migraines Psychiatric History: Reports: None Endocrine/Metabolic History: Reports: None Hematologic History: Reports: None Immunologic History: Reports: None Oncologic (Cancer) History: Reports: None Dermatologic History: Reports: None - Infectious Disease History Infectious Disease History: Reports: None - Past Surgical History Head Surgeries/Procedures: Reports: None GI Surgical History: Reports: Cholecystectomy Social & Family History - Family History Family Medical History: No Pertinent Family History - Tobacco Use Tobacco Use Status *Q: Current Every Day Tobacco User Years of Tobacco use: 10 Packs/Tins Daily: 0.2 - Caffeine Use Caffeine Use: Reports: Soda - Recreational Drug Use Recreational Drug Use: No - Living Situation & Occupation Living situation: Reports: with Family ED ROS GENERAL - Review of Systems Review Of Systems: Comprehensive ROS is negative, except as noted in HPI. ED EXAM, GI/ABD - Physical Exam Exam: See Below Exam Limited By: No Limitations General Appearance: Alert, Moderate Distress Respiratory/Chest: No Respiratory Distress, Lungs Clear, Normal Breath Sounds Cardiovascular: Normal Peripheral Pulses, Regular Rate, Rhythm, No Edema (Different you cannot sleep like this) GI/Abdominal Exam: Normal Bowel Sounds, Soft, Other (Patient reports lower abdominal cramping) Back Exam: Normal Inspection Neurological: Alert, Oriented (x3) Psychiatric: Depressed Mood, Tearful Lymphatic: No Adenopathy Course - Vital Signs Last Recorded V/S: Last Vital Signs Temp 97.6 F 05/14/20 00:33 Pulse 90 05/14/20 00:33 Resp 18 05/14/20 00:33 BP 106/76 05/14/20 00:33 Pulse Ox 100 05/14/20 00:33 - Orders/Labs/Meds Meds: Medications Discontinued Medications Generic Name Dose Route Start Last Admin Trade Name Marielle PRN Reason Stop Dose Admin Acetaminophen 975 mg 05/14/20 00:42 05/14/20 00:48 Acetaminophen 325 Mg Tab PO 05/14/20 00:43 975 mg NOW ONE Administration Acetaminophen Confirm 05/14/20 00:51 05/14/20 01:28 Acetaminophen 325 Mg Tab Administered 05/14/20 00:52 Not Given Dose 325 mg .ROUTE .STK-MED ONE - Re-Assessments/Exams Free Text/Narrative Re-Assessment/Exam: Reviewed exam findings with patient. She was given Tylenol 1000 mg for pain with no relief. Reviewed case with Dr. Montes De Oca family medicine on-call who recommended that patient could go to [place] for a D&C with her FOOD SPECIALIST or return home and take her ibuprofen as needed for pain and just wait for the miscarriage to go through. Also called Dr. Cuello patient's FOOD SPECIALIST as he was administrative assistant front desk at [facility] in [place] and he recommended that patient should come in for a D&C. Reviewed this with patient and she was in agreement. Patient transported by her friend by private vehicle Departure - Departure Time of Disposition: 02:13 Disposition: DC/Tfer to Acute Hospital 02 Condition: Fair Clinical Impression: Threatened - Discharge Information Forms: ED Department Discharge, Interfacility Transfer [facility] Sepsis Event Note (ED) - Evaluation Sepsis Screening Result: No Definite Risk
== END 2020-05-14 02:26 ==
LOC: DL.ED 00:09
DX: O20.0 Threatened abortion (principal); Z72.0 Tobacco use; Z88.5 Allergy status to narcotic agent; Z3A.11 11 weeks gestation of pregnancy
CPT/HCPCS: 99284; A9270

== ENCOUNTER 2020-05-21 22:59 | Emergency (ER) | payer MEDICAID ==
[2020-05-21 23:26] VITALS: BP 125/75; PULSE 95
--- NOTE | 2020-05-22 00:11 | EDM.PDOC ---
ED HPI GENERAL MEDICAL PROBLEM - General Chief Complaint: TALENT COORDINATOR Problem Stated Complaint: HEAVY BLEEDING AFTER A D&C Time Seen by Provider: 05/21/20 23:25 Source of Information: Reports: Patient History Limitations: Reports: No Limitations - History of Present Illness INITIAL COMMENTS - FREE TEXT/NARRATIVE: ED with c/o of heavy vag bleeding and clots. D/C on 05/17 for miscarriage in by Dr Cuello. Estimated 11 week . . no fever or chills. some increase lower abdominal pain and cramping. Bleeding amont more tonight than prior. 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 No odor noted. - Related Data Allergies Allergy/AdvReac Type Severity Reaction Status Date / Time morphine AdvReac Stomach Verified 03/13/19 20:55 Upset Home Meds: Home Meds . [No Known Home Meds] 03/13/19 [History] Past Medical History - Past Health History Medical/Surgical History: Denies Medical/Surgical History HEENT History: Reports: None Cardiovascular History: Reports: None Respiratory History: Reports: None Gastrointestinal History: Reports: Cholelithiasis Other Gastrointestinal History: FU with GI scheduled for 01/24 in . Genitourinary History: Reports: None TALENT COORDINATOR History: Reports: , Spontaneous , Other (See Below) Other TALENT COORDINATOR History: D&C Musculoskeletal History: Reports: None Neurological History: Reports: Migraines Psychiatric History: Reports: None Endocrine/Metabolic History: Reports: None Hematologic History: Reports: None Immunologic History: Reports: None Oncologic (Cancer) History: Reports: None Dermatologic History: Reports: None - Infectious Disease History Infectious Disease History: Reports: None - Past Surgical History Head Surgeries/Procedures: Reports: None GI Surgical History: Reports: Cholecystectomy Social & Family History - Family History Family Medical History: No Pertinent Family History - Tobacco Use Tobacco Use Status *Q: Never Tobacco User - Caffeine Use Caffeine Use: Reports: Coffee, Soda - Recreational Drug Use Recreational Drug Use: No - Living Situation & Occupation Living situation: Reports: with Family ED ROS GENERAL - Review of Systems Review Of Systems: Comprehensive ROS is negative, except as noted in HPI. ED EXAM, GI/ABD - Physical Exam Exam: See Below Exam Limited By: No Limitations General Appearance: Alert, Anxious Ears: Normal External Exam Nose: Normal Inspection Throat/Mouth: Normal Inspection Head: Atraumatic, Normocephalic Neck: Normal Inspection, Full Range of Motion Respiratory/Chest: No Respiratory Distress, Lungs Clear, Normal Breath Sounds Cardiovascular: Normal Peripheral Pulses, Regular Rate, Rhythm GI/Abdominal Exam: Normal Bowel Sounds, Soft, Tender (mild auprapubic) (Female) Exam: Enlarged Uterus, Vaginal Bleeding (small amount dark red, thready small clots in vaginal vault) Neurological: Alert, Oriented, Normal Cognition Psychiatric: Anxious Skin Exam: Warm, Dry, Normal Color Course - Vital Signs Last Recorded V/S: Last Vital Signs Temp 97 F 05/21/20 23:21 Pulse 95 05/21/20 23:21 Resp 16 05/21/20 23:21 BP 125/75 05/21/20 23:21 Pulse Ox 100 05/21/20 23:21 - Orders/Labs/Meds Labs: Laboratory Tests 05/21/20 05/21/20 05/21/20 Range/Units 23:45 23:45 23:45 WBC 12.6 H (5.0-10.0) 10^3/uL RBC 3.97 L (4.2-5.4) 10^6/uL Hgb 11.9 L (12.0-16.0) g/dL Hct 34.4 L (37.0-47.0) % MCV 86.6 D (80-100) fL MCH 30.0 (27.0-34.0) pg MCHC 34.6 (33.0-35.0) g/dL Plt Count 332 (150-450) 10^3/uL Neut % (Auto) 63.2 (42.2-75.2) % Lymph % (Auto) 24.6 (20.5-50.1) % [place] % (Auto) 9.8 H (2-8) % Eos % (Auto) 2.2 (1.0-3.0) % Baso % (Auto) 0.2 (0.0-1.0) % Sodium 143 (136-145) mmol/L Potassium 3.6 (3.5-5.1) mmol/L Chloride 107 (98-107) mmol/L Carbon Dioxide 23 (21-32) mmol/L Anion Gap 16.6 H (7-13) mEq/L BUN 5 L (7-18) mg/dL Creatinine 0.73 (0.55-1.02) mg/dL Est Cr Clr Drug Dosing 118.83 mL/min Estimated GFR (MDRD) > 60 BUN/Creatinine Ratio 6.8 (No establ ref range) Glucose 100 H (74-99) mg/dL Lactic Acid 0.6 (0.4-2.0) mmol/L Calcium 8.3 L (8.5-10.1) mg/dL Total Bilirubin 0.3 (0.2-1.0) mg/dL AST 16 (15-37) U/L ALT 32 (14-59) U/L Alkaline Phosphatase 82 (46-116) U/L Total Protein 7.0 (6.4-8.2) g/dL Albumin 3.8 (3.4-5.0) g/dL Globulin 3.2 Albumin/Globulin Ratio 1.2 Urine Color (YELLOW) Urine Appearance (CLEAR) Urine pH (5.0-9.0) Ur Specific [place] (1.005-1.030) Urine Protein (NEGATIVE) Urine Glucose (UA) (NEGATIVE) Urine Ketones (NEGATIVE) Urine Occult Blood (NEGATIVE) Urine Nitrite (NEGATIVE) Urine Bilirubin (NEGATIVE) Urine Urobilinogen (0.2-1.0) mg/dL Ur Leukocyte Esterase (NEGATIVE) Urine RBC /HPF Urine WBC (0-5/HPF) /HPF Ur Epithelial Cells (NOT SEEN) /HPF Urine Bacteria (0-FEW/HPF) /HPF /05/09 Range/Units 00:12 WBC (5.0-10.0) 10^3/uL RBC (4.2-5.4) 10^6/uL Hgb (12.0-16.0) g/dL Hct (37.0-47.0) % MCV (80-100) fL MCH (27.0-34.0) pg MCHC (33.0-35.0) g/dL Plt Count (150-450) 10^3/uL Neut % (Auto) (42.2-75.2) % Lymph % (Auto) (20.5-50.1) % [place] % (Auto) (2-8) % Eos % (Auto) (1.0-3.0) % Baso % (Auto) (0.0-1.0) % Sodium (136-145) mmol/L Potassium (3.5-5.1) mmol/L Chloride (98-107) mmol/L Carbon Dioxide (21-32) mmol/L Anion Gap (7-13) mEq/L BUN (7-18) mg/dL Creatinine (0.55-1.02) mg/dL Est Cr Clr Drug Dosing mL/min Estimated GFR (MDRD) BUN/Creatinine Ratio (No establ ref range) Glucose (74-99) mg/dL Lactic Acid (0.4-2.0) mmol/L Calcium (8.5-10.1) mg/dL Total Bilirubin (0.2-1.0) mg/dL AST (15-37) U/L ALT (14-59) U/L Alkaline Phosphatase (46-116) U/L Total Protein (6.4-8.2) g/dL Albumin (3.4-5.0) g/dL Globulin Albumin/Globulin Ratio Urine Color Yellow (YELLOW) Urine Appearance Slightly cloudy (CLEAR) Urine pH 5.5 (5.0-9.0) Ur Specific [place] 1.025 (1.005-1.030) Urine Protein Negative (NEGATIVE) Urine Glucose (UA) Negative (NEGATIVE) Urine Ketones Negative (NEGATIVE) Urine Occult Blood Large H (NEGATIVE) Urine Nitrite Negative (NEGATIVE) Urine Bilirubin Negative (NEGATIVE) Urine Urobilinogen 0.2 (0.2-1.0) mg/dL Ur Leukocyte Esterase Negative (NEGATIVE) Urine RBC 20-30 H /HPF Urine WBC 0-5 (0-5/HPF) /HPF Ur Epithelial Cells Moderate H (NOT SEEN) /HPF Urine Bacteria Many H (0-FEW/HPF) /HPF Departure - Departure Time of Disposition: 00:32 Disposition: Home, Self-Care 01 Condition: Good Clinical Impression: Abdominal pain, S/P dilation and curettage - Discharge Information *PRESCRIPTION DRUG MONITORING PROGRAM REVIEWED*: No *COPY OF PRESCRIPTION DRUG MONITORING REPORT IN PATIENT JANN: No Instructions: Dilation and Curettage or Vacuum Curettage, Care After Forms: ED Department Discharge Additional Instructions: rest increase fluids alternate tylenol 650mg and ibuprofen 600mg every 4 hours follow up bleeding increases fever or worsening pain Follow up wit Dr Cuello's office on Sunday for recheck Sepsis Event Note (ED) - Evaluation Sepsis Screening Result: No Definite Risk
[2020-05-22 00:12] LABS: ANION GAP 16.6 mEq/L (7-13); CHLORIDE,CL 107 mmol/L (98-107); SODIUM,NA 143 mmol/L (136-145)
== END 2020-05-22 00:40 | disposition home or self-care (01) ==
LOC: DL.ED 22:59
DX: O99.891 Other specified diseases and conditions complicating pregnancy (principal); R10.30 Lower abdominal pain, unspecified; Z88.5 Allergy status to narcotic agent; Z98.890 Other specified postprocedural states; Z3A.11 11 weeks gestation of pregnancy
CPT/HCPCS: 36415; 80053; 81001; 83605; 85025; 99283; 99284

== ENCOUNTER 2020-06-23 22:47 | Emergency (ER) | payer MEDICAID ==
[2020-06-24 00:32] VITALS: BP 123/75; PULSE 84
[2020-06-24] MEDS ORDERED: Clindamycin HCl 150 MG Cap PO ONE (00:38)
[2020-06-24] MEDS ORDERED: Bacitracin Oint 1 GM U/D Packet TOP ONE (00:38)
--- NOTE | 2020-06-24 00:46 | EDM.PDOC ---
ED HPI GENERAL MEDICAL PROBLEM - General Chief Complaint: Skin Complaint Stated Complaint: LEFT LEG INFECTIONS, SWOLLEN RED Time Seen by Provider: 06/24/20 00:35 Source of Information: Reports: Patient History Limitations: Reports: No Limitations - History of Present Illness INITIAL COMMENTS - FREE TEXT/NARRATIVE: This 30 yo female patient reports to the ED due to a wound on her left lower leg. The patient believes she was bitten by an insect about 4 days ago. The patient reports she has been cleaning the area with alcohol, applying triple antibiotic cream and covering it with a Band Aid. Onset Date: 06/20/20 Duration: Constant, Getting Worse Location: Reports: Lower Extremity, Left Quality: Reports: Ache, Dull Severity: Mild Improves with: Reports: None Worsens with: Reports: None Context: Reports: Other Associated Symptoms: Reports: No Other Symptoms Left Lower Leg Pain Score (Numeric/FACES): 2 - Related Data Allergies Allergy/AdvReac Type Severity Reaction Status Date / Time morphine AdvReac Stomach Verified 06/24/20 00:31 Upset Home Meds: Home Meds . [No Known Home Meds] 03/13/19 [History] Past Medical History - Past Health History Medical/Surgical History: Denies Medical/Surgical History HEENT History: Reports: None Cardiovascular History: Reports: None Respiratory History: Reports: None Gastrointestinal History: Reports: Cholelithiasis Other Gastrointestinal History: FU with GI scheduled for 01/24 in . Genitourinary History: Reports: None MEAT PUMPER History: Reports: , Spontaneous , Other (See Below) Other MEAT PUMPER History: D&C Musculoskeletal History: Reports: None Neurological History: Reports: Migraines Psychiatric History: Reports: None Endocrine/Metabolic History: Reports: None Hematologic History: Reports: None Immunologic History: Reports: None Oncologic (Cancer) History: Reports: None Dermatologic History: Reports: None - Infectious Disease History Infectious Disease History: Reports: None - Past Surgical History Head Surgeries/Procedures: Reports: None GI Surgical History: Reports: Cholecystectomy Social & Family History - Family History Family Medical History: No Pertinent Family History - Tobacco Use Tobacco Use Status *Q: Current Every Day Tobacco User Years of Tobacco use: 12 Packs/Tins Daily: 1 Second Hand Smoke Exposure: No - Caffeine Use Caffeine Use: Reports: Coffee - Recreational Drug Use Recreational Drug Use: No - Living Situation & Occupation Living situation: Reports: with Family ED ROS GENERAL - Review of Systems Review Of Systems: Comprehensive ROS is negative, except as noted in HPI. ED EXAM, SKIN/RASH Exam: See Below Exam Limited By: No Limitations General Appearance: Alert, WD/WN, No Apparent Distress Eye Exam: Bilateral Eye: EOMI, Normal Inspection Ears: Normal External Exam, Hearing Grossly Normal Nose: Normal Inspection Throat/Mouth: Normal Lips, Normal Teeth, Normal Voice Neck: Full Range of Motion Respiratory/Chest: No Respiratory Distress, Lungs Clear, Normal Breath Sounds Cardiovascular: Normal Peripheral Pulses, Regular Rate, Rhythm (Female) Exam: Deferred Rectal (Female) Exam: Deferred Extremities: Leg Pain (left lower extremity) Neurological: Alert, Oriented, CN II-XII Intact, Normal Cognition, Normal Gait, Normal Reflexes, No Motor/Sensory Deficits Psychiatric: Normal Affect, Normal Mood Skin: Warm, Dry, Normal Color, No Rash, Erythema (left medial lower leg) Location, Skin: Lower Extremity, Left Characteristics: Erythematous (Area is 2 cmx2cm with clearing in the center. There is no evidence of abscess. ) Associated features: Tenderness, Swelling Lymphatic: No Adenopathy Course - Vital Signs Last Recorded V/S: Last Vital Signs Temp 36.2 C 06/24/20 00:24 Pulse 84 06/24/20 00:24 Resp 16 06/24/20 00:24 BP 123/75 06/24/20 00:24 Pulse Ox 100 06/24/20 00:24 - Orders/Labs/Meds Meds: Medications Discontinued Medications Generic Name Dose Route Start Last Admin Trade Name Freq PRN Reason Stop Dose Admin Bacitracin 1 dose 06/24/20 00:38 Bacitracin Oint 1 Gm U/D Packet TOP 06/24/20 00:39 ONETIME ONE Clindamycin HCl 300 mg 06/24/20 00:38 Clindamycin Hcl 150 Mg Cap PO 06/24/20 00:39 ONETIME ONE Departure - Departure Time of Disposition: 00:46 Disposition: Home, Self-Care 01 Condition: Fair Clinical Impression: Cellulitis Qualifiers: Site of cellulitis: extremity Site of cellulitis of extremity: lower extremity Laterality: left Qualified Code(s): L03.116 - Cellulitis of left lower limb - Discharge Information *PRESCRIPTION DRUG MONITORING PROGRAM REVIEWED*: Not Applicable *COPY OF PRESCRIPTION DRUG MONITORING REPORT IN PATIENT JANN: Not Applicable Instructions: Cellulitis, Adult, [id number] Care Plan Goals: The patient was advised of the examination results during the visit. The area was covered with antibiotic ointment and covered with a Bandaid during the v isit. The patient was given an oral dose of Clindamycin (300mg) while in the ED. The patient was discharged with a script for Clindamycin (300 mg) #40 to take 1 by mouth 4 times per day for 10 days. The patient was encouraged to avoid cleaning the area with alcohol or peroxide. The patient should apply a small amount of antibiotic ointment to the area and cover it with a Bandaid. If the patient has any additional symptoms or concerns, the patient should either return to the emergency department or visit her primary care facility. Sepsis Event Note (ED) - Evaluation Sepsis Screening Result: No Definite Risk - Focused Exam Vital Signs: Vital Signs Temp Pulse Resp BP Pulse Ox 06/24/20 00:24 36.2 C 84 16 123/75 100
== END 2020-06-24 00:55 | disposition home or self-care (01) ==
LOC: DL.ED 22:47
DX: L03.116 Cellulitis of left lower limb (principal); Z88.5 Allergy status to narcotic agent
CPT/HCPCS: 99282; A9270; 99283

== ENCOUNTER 2020-09-11 19:59 | Emergency (ER) | payer MEDICAID ==
[2020-09-11] MEDS ORDERED: Acetaminophen/HYDROcodone 325-5 MG Tab PO ONE (20:00)
[2020-09-11 20:38] VITALS: BP 122/75; PULSE 97
[2020-09-11] MEDS ORDERED: Acetaminophen 500 MG Tab PO ONE (20:57)
[2020-09-11] MEDS ORDERED: Penicillin V Potassium 250 MG Tab PO ONE (21:00)
[2020-09-11] MEDS ORDERED: Acetaminophen/HYDROcodone 325-5 MG Tab ONE (21:06)
--- NOTE | 2020-09-11 21:10 | EDM.PDOC ---
ED HPI GENERAL MEDICAL PROBLEM - General Chief Complaint: ENT Problem Stated Complaint: THOOTHACHE Time Seen by Provider: 09/11/20 20:53 Source of Information: Reports: Patient, RN History Limitations: Reports: No Limitations - History of Present Illness INITIAL COMMENTS - FREE TEXT/NARRATIVE: 30-year-old female who presents to the ER with complaints of dental pain x2 days. Patient reports pain in the left upper and lower molars that began 2 days ago. She states she has tried Orajel and ibuprofen with no relief. She reports taking 1500 mg of ibuprofen today and recently 1 hour before ER visit with little relief. She rates pain as a 9 out of 10 at this time with 10 being the worst pain possible. She denies any fevers, shortness of breath, chills, chest pain, palpitations, or abdominal problems at this time. She denies any drainage or abscess at this time. Left Oral/Mouth Pain Score (Numeric/FACES): 10 - Related Data Allergies Allergy/AdvReac Type Severity Reaction Status Date / Time morphine AdvReac Stomach Verified 09/11/20 20:34 Upset Home Meds: Home Meds . [No Known Home Meds] 03/13/19 [History] Past Medical History - Past Health History Medical/Surgical History: Denies Medical/Surgical History HEENT History: Reports: None Cardiovascular History: Reports: None Respiratory History: Reports: None Gastrointestinal History: Reports: Cholelithiasis Other Gastrointestinal History: FU with GI scheduled for 01/24 in . Genitourinary History: Reports: None SECURITY AUDITOR History: Reports: , Spontaneous , Other (See Below) Other SECURITY AUDITOR History: D&C Musculoskeletal History: Reports: None Neurological History: Reports: Migraines Psychiatric History: Reports: None Endocrine/Metabolic History: Reports: None Hematologic History: Reports: None Immunologic History: Reports: None Oncologic (Cancer) History: Reports: None Dermatologic History: Reports: None - Infectious Disease History Infectious Disease History: Reports: None - Past Surgical History Head Surgeries/Procedures: Reports: None GI Surgical History: Reports: Cholecystectomy Social & Family History - Family History Family Medical History: No Pertinent Family History - Tobacco Use Tobacco Use Status *Q: Light Tobacco User Years of Tobacco use: 10 Packs/Tins Daily: 0.2 - Caffeine Use Caffeine Use: Reports: Coffee - Recreational Drug Use Recreational Drug Use: No - Living Situation & Occupation Living situation: Reports: with Family ED ROS ENT - Review of Systems Review Of Systems: Comprehensive ROS is negative, except as noted in HPI. ED EXAM, ENT - Physical Exam Exam: See Below Exam Limited By: No Limitations General Appearance: Alert, Anxious, Moderate Distress Eye Exam: Bilateral Eye: PERRL Ears: Normal External Exam, Normal Canal, Hearing Grossly Normal, Normal TMs Nose: Normal Inspection, Normal Mucousa, No Blood Mouth/Throat: Normal Gums, Normal Lips, Normal Oropharynx, Other (Dental cavity noted on the left upper third molar. Several fillings also noted on the left upper molars.) Neck: Normal Inspection, Supple, Non-Tender, Full Range of Motion Respiratory/Chest: No Respiratory Distress, Lungs Clear, Normal Breath Sounds, No Accessory Muscle Use, Chest Non-Tender Cardiovascular: Normal Peripheral Pulses, Regular Rate, Rhythm, No Edema, No Gal lop, No JVD, No Murmur, No Rub Neurological: Alert, Oriented Psychiatric: Anxious Lymphatic: No Adenopathy Course - Vital Signs Last Recorded V/S: Last Vital Signs Temp 97.1 F 09/11/20 20:36 Pulse 97 09/11/20 20:36 Resp 18 09/11/20 20:36 BP 122/75 09/11/20 20:36 Pulse Ox 98 09/11/20 20:36 - Orders/Labs/Meds Meds: Medications Discontinued Medications Generic Name Dose Route Start Last Admin Trade Name Marielle PRN Reason Stop Dose Admin Acetaminophen 1,000 mg 09/11/20 20:57 09/11/20 21:07 Acetaminophen 500 Mg Tab PO 09/11/20 20:58 Not Given ONETIME ONE Hydrocodone Bitart/Acetaminophen Confirm 09/11/20 21:06 09/11/20 21:09 Acetaminophen/Hydrocodone 325-5 Mg Tab Administered 09/11/20 21:07 Not Given Dose 5 tab .ROUTE .STK-MED ONE Penicillin V Potassium 500 mg 09/11/20 21:00 09/11/20 21:07 Penicillin V Potassium 250 Mg Tab PO 09/11/20 21:01 500 mg Q12HR ONE Administration - Re-Assessments/Exams Free Text/Narrative Re-Assessment/Exam: Exam findings with patient. Tylenol 1000 mg and penicillin VK administered in the ER. Hydrocodone 5 pills given to patient to take home and administer every 6 hours as needed. Rx for penicillin VK sent home with patient. Encourage dentist follow-up. Also encourage teeth hygiene. Continue Tylenol and ibuprofen every 6 hours intermittently as needed. Return to the ER if symptoms worsen. Departure - Departure Time of Disposition: 21:14 Disposition: Home, Self-Care 01 Condition: Fair Clinical Impression: Dental cavities - Discharge Information Forms: ED Department Discharge Additional Instructions: Hydrocodone 5 pills given to patient to take home and administer every 6 hours as needed. Rx for penicillin VK sent home with patient. Encourage dentist follow-up. Also encourage teeth hygiene. Continue Tylenol and ibuprofen every 6 hours intermittently as needed. Return to the ER if symptoms worsen. Sepsis Event Note (ED) - Evaluation Sepsis Screening Result: No Definite Risk - Focused Exam Vital Signs: Vital Signs Temp Pulse Resp BP Pulse Ox 09/11/20 20:36 97.1 F 97 18 122/75 98
== END 2020-09-11 21:21 | disposition home or self-care (01) ==
LOC: DL.ED 19:59
DX: K02.9 Dental caries, unspecified (principal); Z88.6 Allergy status to analgesic agent; Z72.0 Tobacco use
CPT/HCPCS: 99282; 99283; A9270

== ENCOUNTER 2021-03-06 21:29 | Emergency (ER) | payer MEDICAID ==
[2021-03-06 21:52] VITALS: BP 135/64
[2021-03-06 22:18] LABS: CORONAVIRUS COVID-19 NAA POSITIVE (NEGATIVE)
[2021-03-06] MEDS ORDERED: Oxymetazoline 0.05% Nasal Spray 30 ML Bottle NAS ONE (22:35)
[2021-03-06] MEDS ORDERED: Benzonatate 100 MG Cap PO ONE (22:35)
[2021-03-06 22:51] VITALS: PULSE 82
== END 2021-03-06 22:55 | disposition home or self-care (01) ==
LOC: DL.ED 21:29
DX: U07.1 COVID-19 (principal); Z72.0 Tobacco use; Z88.5 Allergy status to narcotic agent
CPT/HCPCS: 0240U; 99283; A9270

== ENCOUNTER 2022-05-06 09:55 | Emergency (ER) | payer BC, MEDICAID ==
[2022-05-06] MEDS ORDERED: Ondansetron 4 MG Tab.DIS PO ONE ×2 (09:56→11:56)
[2022-05-06] MEDS ORDERED: Ondansetron 4 MG/2 ML SDV IVPUSH ONE (10:10)
[2022-05-06] MEDS ORDERED: Sodium Chloride 0.9% 1,000 ML IV ONE ×2 (10:10→10:59)
[2022-05-06 10:45] LABS: ANION GAP 15.8 mEq/L (7-13); CHLORIDE,CL 105 mmol/L (98-107); SODIUM,NA 141 mmol/L (136-145)
[2022-05-06 10:46] LABS: ESTIMATED GFR 104 mL/min (>=60)
[2022-05-06 10:54] VITALS: BP 106/75; PULSE 96
[2022-05-06 11:50] LABS: CORONAVIRUS COVID-19 NAA NEGATIVE (NEGATIVE)
[2022-05-06] MEDS ORDERED: Ondansetron 4 MG Tab.DIS ONE (12:34)
== END 2022-05-06 12:49 | disposition home or self-care (01) ==
LOC: DL.ED 09:55
DX: K52.9 Noninfective gastroenteritis and colitis, unspecified (principal); Z88.5 Allergy status to narcotic agent; Z91.011 Allergy to milk products; Z86.16 Personal history of COVID-19; Z72.0 Tobacco use; Z20.822 Contact with and (suspected) exposure to COVID-19
CPT/HCPCS: 0240U; 36415; 80053; 85025; 96361; 96374; 99283; 99284; A9270; J2405; J7030

== ENCOUNTER 2024-04-10 18:53 | Emergency (ER) | payer BC, MEDICAID ==
[2024-04-10 19:19] VITALS: BP 121/70; PULSE 78
== END 2024-04-10 19:16 | disposition home or self-care (01) ==
LOC: DL.ED 18:53
DX: I88.9 Nonspecific lymphadenitis, unspecified (principal); Z91.011 Allergy to milk products; Z88.5 Allergy status to narcotic agent; Z79.84 Long term (current) use of oral hypoglycemic drugs; Z79.899 Other long term (current) drug therapy; Z86.16 Personal history of COVID-19
CPT/HCPCS: 99283

== ENCOUNTER 2024-12-26 10:26 | Emergency (ER) | payer BC ==
[2024-12-26] MEDS: Ondansetron 4 MG Tab.DIS PO ONE (10:55)
[2024-12-26] MEDS ORDERED: Sodium Chloride 0.9% 10 ML Syringe FLUSH PRN (11:17)
[2024-12-26 11:31] LABS: BASOPHILS PERCENT AUTO 0.1 % (0.0-1.0); EOSINOPHILS PERCENT AUTO 1.3 % (1.0-3.0); LYMPHOCYTES PERCENT AUTO 25.0 % (20.5-50.1); MONOCYTES PERCENT AUTO 10.1 % (2-8); NEUTROPHILS PERCENT AUTO 63.5 % (42.2-75.2); PLATELET COUNT,PLT 322 10^3/uL (150-450); RED BLOOD CELL COUNT 4.78 10^6/uL (4.2-5.4); WHITE BLOOD CELL COUNT,WBC 7.8 10^3/uL (5.0-10.0)
[2024-12-26 11:48] LABS: A/G RATIO 1.1; ALANINE AMINOTRANSFERASE,ALT 40.0 U/L (14-59); ASPARTATE AMNIOTRANSFERASE,AST 23.0 U/L (15-37); BILIRUBIN TOTAL 0.4 mg/dL (0.2-1.0); BLOOD UREA NITROGEN,BUN 8.0 mg/dL (7-18); CARBON DIOXIDE,CO2 24.0 mmol/L (21-32); CHLORIDE,CL 105.0 mmol/L (98-107); CREATININE 0.59 mg/dL (0.55-1.02); EST CRCL DRUG DOSING (CG) 136.81 mL/min; GLUCOSE RANDOM 102.0 mg/dL (70-99); POTASSIUM,K 4.0 mmol/L (3.5-5.1); PROTEIN TOTAL,TP 7.8 g/dL (6.4-8.2); SODIUM,NA 142.0 mmol/L (136-145)
[2024-12-26 11:51] LABS: LACTIC ACID 1.5 mmol/L (0.4-2.0)
[2024-12-26 11:54] LABS: ESTIMATED GFR 122.0 mL/min (>=60)
[2024-12-26 13:10] VITALS: BP 126/73; PULSE 86
== END 2024-12-26 13:00 | disposition home or self-care (01) ==
LOC: DL.ED 10:26
DX: A05.9 Bacterial foodborne intoxication, unspecified (principal); Z86.16 Personal history of COVID-19; Z79.899 Other long term (current) drug therapy; Z91.0110 Allergy to milk products, unspecified; Z88.5 Allergy status to narcotic agent
CPT/HCPCS: 36415; 80053; 81025; 83605; 83735; 85025; 96361; 96374; 99284; A9270; J2765; J7030

== ENCOUNTER 2025-01-26 01:23 | Emergency (ER) | payer BC ==
[2025-01-26] MEDS ORDERED: Sodium Chloride 0.9% 10 ML Syringe FLUSH PRN (01:32)
[2025-01-26 01:44] LABS: RED BLOOD CELL COUNT 4.71 10^6/uL (4.2-5.4); WHITE BLOOD CELL COUNT,WBC 11.7 10^3/uL (5.0-10.0)
[2025-01-26 01:45] LABS: BASOPHILS PERCENT AUTO 0.1 % (0.0-1.0); EOSINOPHILS PERCENT AUTO 1.7 % (1.0-3.0); LYMPHOCYTES PERCENT AUTO 29.7 % (20.5-50.1); MONOCYTES PERCENT AUTO 9.9 % (2-8); NEUTROPHILS PERCENT AUTO 58.6 % (42.2-75.2); PLATELET COUNT,PLT 307 10^3/uL (150-450)
[2025-01-26] MEDS: Ondansetron 4 MG/2 ML SDV IVPUSH ONE (01:45)
[2025-01-26 01:49] LABS: APPEARANCE,URINE CLEAR (CLEAR); GLUCOSE,URINE NEGATIVE (NEGATIVE); OCCULT BLOOD,URINE NEGATIVE (NEGATIVE)
[2025-01-26] MEDS: Iopamidol 612 MG/ML 100 ML Bottle IVPUSH ONE (01:50)
[2025-01-26 01:53] LABS: AMPHETAMINES,URINE NEGATIVE (NEGATIVE); BARBITURATES,URINE NEGATIVE (NEGATIVE); MDMA (ECSTASY), URINE NEGATIVE (NEGATIVE); METHAMPHETAMINES,URINE NEGATIVE (NEGATIVE); OPIATES,URINE NEGATIVE (NEGATIVE); OXYCODONE,URINE NEGATIVE (NEGATIVE); PHENCYCLIDINE,URINE NEGATIVE (NEGATIVE); TCA,URINE NEGATIVE (NEGATIVE)
[2025-01-26 02:09] LABS: A/G RATIO 1.1; ALANINE AMINOTRANSFERASE,ALT 27 U/L (14-59); ASPARTATE AMNIOTRANSFERASE,AST 18 U/L (15-37); BILIRUBIN TOTAL 0.3 mg/dL (0.2-1.0); BLOOD UREA NITROGEN,BUN 10 mg/dL (7-18); CREATININE 0.87 mg/dL (0.55-1.02); EST CRCL DRUG DOSING (CG) 92.78 mL/min; GLUCOSE RANDOM 99 mg/dL (70-99); PROTEIN TOTAL,TP 7.8 g/dL (6.4-8.2)
[2025-01-26 02:17] LABS: CARBON DIOXIDE,CO2 21 mmol/L (21-32); CHLORIDE,CL 99 mmol/L (98-107); ESTIMATED GFR 90 mL/min (>=60); POTASSIUM,K 3.4 mmol/L (3.5-5.1); SODIUM,NA 120 mmol/L (136-145)
[2025-01-26 03:46] VITALS: BP 96/59; PULSE 77
== END 2025-01-26 03:58 ==
LOC: DL.ED 01:23
DX: N83.201 Unspecified ovarian cyst, right side (principal); E87.1 Hypo-osmolality and hyponatremia; Z91.0110 Allergy to milk products, unspecified; Z88.5 Allergy status to narcotic agent; Z86.16 Personal history of COVID-19
CPT/HCPCS: 36415; 74177; 80053; 80305-QW; 81003; 81025; 83605; 83690; 83735; 85025; 86140; 96361; 96374; 96375; 99285; 99285-25; J1171; J2405; J7030; Q9967